=== PATIENT | female | born 1945 | race Caucasian/White ===

== ENCOUNTER → 2019-09-26 11:57 | Outpatient (CLI) | payer MEDICARE, SELFPAY ==
[2019-09-29 16:52] LABS: COVID19 Sendout Not Detected (Not Detected)
== END ==
PROVIDERS: Visit Provider Physician Assistant
DX: R05 Cough (principal)
CPT/HCPCS: 87635

== ENCOUNTER → 2020-01-26 12:42 | Outpatient (CLI) | payer MEDICARE, SELFPAY ==
[2020-01-26 14:13] LABS: Add Manual Diff / Slide Review NO; Basophils Absolute Auto 100 /uL (0-100); Basophils Percent Auto 0.7 % (0-2); Eosinophils Absolute Auto 100 /uL (0-450); Eosinophils Percent Auto 1.6 % (2-4); Hematocrit 41.3 % (36-46); Hemoglobin 13.9 g/dL (12.0-16.0); Lymphocytes Absolute Auto 1900 /uL (1100-4500); Lymphocytes Percent Auto 25.2 % (25-40); Mean Corpuscular HGB Conc 33.6 % (30-36); Mean Corpuscular Hemoglobin 30.7 PG (26-34); Mean Corpuscular Volume 91.4 fL (80-100); Monocytes Absolute Auto 600 /uL (0-900); Monocytes Percent Auto 7.6 % (3-14); Neutrophils Absolute Auto 4900 /uL (1500-7000); Neutrophils Percent Auto 64.9 % (50-75); Platelet Count 279 X10^3/uL (150-400); Red Blood Cell Count 4.52 X10^6/uL (4.0-5.2); Red Cell Distribution Width 13.4 % (11.6-14.8); White Blood Cell Count 7.5 X10^3/uL (4.5-11.0)
[2020-01-26 15:17] LABS: Alanine Aminotransferase 21 IU/L (<35); Albumin 4.1 g/dL (3.5-5.0); Albumin Globulin Ratio 1.3 (1.0-2.8); Alkaline Phosphatase 107 U/L (38-126); Aspartate Aminotransferase 33 IU/L (14-36); BUN Creatinine Ratio 36.3 (6-22); Bilirubin Total 0.7 mg/dL (0.2-1.3); Blood Urea Nitrogen 29 mg/dL (7-17); Calcium 9.4 mg/dL (8.4-10.2); Carbon Dioxide 34 mmol/L (22-32); Chloride 98 mmol/L (98-107); Cholesterol 205 mg/dL (140-199); Estimated Glomerular Filt Rate > 60.0 mL/min (>60); Globulin 3.2 g/dL (1.7-4.1); Glucose 95 mg/dL (80-110); HDL Cholesterol 60 mg/dL (40-60); HEMOLYSIS < 15 (0-50); LDL Cholesterol Calculated 112 mg/dL (<100); Potassium 4.5 mmol/L (3.4-5.1); Sodium 139 mmol/L (137-145); Total Protein 7.3 g/dL (6.3-8.2); Triglycerides 167 mg/dL (35-150)
[2020-01-26 15:29] LABS: Creatinine Urine Random 143.4 mg/dL
[2020-01-26 15:34] LABS: Microalbumi Creatinin Ratio Ur 4.8 ug/mg CR (<30); Microalbumin Urine Random 0.7 mg/dL (0-1.6)
== END ==
PROVIDERS: PCP Family Medicine; Referring Provider Family Medicine; Visit Provider Family Medicine
DX: R42 Dizziness and giddiness (principal); I10 Essential (primary) hypertension
CPT/HCPCS: 36415; 80053; 80061; 82043; 82570; 85025

== ENCOUNTER → 2020-02-20 12:13 | Outpatient (CLI) | payer MEDICARE, SELFPAY ==
--- NOTE | 2020-02-20 12:28 | DI.CT.S_ITS ---
PROCEDURE: CT ABDOMEN PELVIS WO CON INDICATIONS: complex ventral hernia, CT for surgical planning TECHNIQUE: Noncontrast 5 mm thick sections acquired from the diaphragms to the symphysis. 5 mm coronal and sagittal reformats were then performed. For radiation dose reduction, the following was used: automated exposure control, adjustment of mA and/or kV according to patient size. COMPARISON: None. FINDINGS: Image quality: Excellent. ABDOMEN: Lung bases: Left lower lobe 4 mm rounded pulmonary nodule, (3/3). No pleural effusion. Heart size is normal. Solid organs: Liver is normal in size. Gallbladder is unremarkable. Pancreas is normal in contours. Spleen is normal in size. No adrenal nodules. Kidneys are normal in size, without hydronephrosis or nephrolithiasis. Peritoneum and bowel: Findings of a gastric sleeve procedure. Small hiatal hernia. Stomach is not distended. Small duodenal diverticulum. No small bowel obstruction. Herniated transverse colon into the ventral abdominal wall hernia. Normal appendix. Sigmoid colon diverticulosis. Somewhat prominent stool in the rectum. No free fluid or air. Nodes and vessels: No retroperitoneal or mesenteric adenopathy by size criteria. Aorta and inferior vena cava are normal in caliber. Miscellaneous: Upper midline ventral abdominal wall hernia containing a loop of transverse colon. The hernia neck measures 4.7 cm, (2/35). Mild stranding within the hernia sac. No fluid collection. PELVIS: Genitourinary: Bladder is mostly obscured by metallic beam hardening artifact. Small calcification in the region of the left adnexa. Miscellaneous: No inguinal hernias or adenopathy. Bones: Right hip total arthroplasty. No suspicious bony lesions. No vertebral body compression fractures. IMPRESSION: 1. Moderate sized ventral upper abdominal abdominal wall hernia containing a portion of the transverse colon. 2. No bowel obstruction. 3. Findings of prior gastric sleeve procedure. Small hiatal hernia. 4. Diverticulosis. Dictated by: Seth Capone M.D. on 02/20/2020 at 12:45 Approved by: Seth Capone M.D. on 02/20/2020 at 12:57
== END ==
PROVIDERS: PCP Family Medicine; Referring Provider Surgery; Visit Provider Surgery
DX: K43.9 Ventral hernia without obstruction or gangrene (principal); M62.08 Separation of muscle (nontraumatic), other site; R91.1 Solitary pulmonary nodule; K44.9 Diaphragmatic hernia without obstruction or gangrene; K57.10 Diverticulosis of small intestine without perforation or abscess without bleeding; Z98.84 Bariatric surgery status
CPT/HCPCS: 74176

== ENCOUNTER → 2020-03-03 09:01 | Outpatient (CLI) | payer MEDICARE, SELFPAY ==
[2020-03-04 12:37] LABS: COVID19 Sendout Not Detected (Not Detect)
== END ==
PROVIDERS: PCP Family Medicine; Visit Provider Physician Assistant
DX: Z11.59 Encounter for screening for other viral diseases (principal)
CPT/HCPCS: 87635

== ENCOUNTER 2020-03-06 06:31 | Day surgery (SDC) | payer MEDICARE, SELFPAY ==
[2020-03-01 14:15] VITALS: BMI 37.0
[2020-03-06] VITALS (10 sets, daily range): BP systolic 112–146; BP diastolic 40–82; PULSE 70–75; RESP 12–93; TEMP 36.2–37.3; O2SAT 16–98; BMI 37.0
--- NOTE | 2020-03-06 | PATH_ITS ---
[facility] Accession Number: [id number] . 01 Material submitted: . hernia - HERNIA SAC . 01 Clinical history: . SDC . 02 Diagnosis: Hernia Sac, Excision: Benign fibroadipose tissue, consistent with hernia sac. No evidence of neoplasm. MRV 03/11/2020 0955 Local . 02 Electronically signed: . Nathan Esparza MD, PhD, Pathologist NPI- [id number] . 01 Gross description: . Received in formalin, labeled hernia sac, and consists of two pink-purple fibromembranous fragments of soft tissue with attached gaona-yellow adipose tissue measuring 9.0 x 8.0 x 2.5 cm in aggregate. Adult Day Care Worker sections are submitted in cassettes A1-A2. ([id number]) /MRV 03/07/2020 1405 Local . 02 Pathologist provided ICD-10: K43.9 . 02 CPT . 585789 Performed at: 01 [facility] [address], [place], [place] [id number] MD Portillo Perez MD Phone: [phone] Performed at: 02 [facility] [address] [place], [place] [id number] MD Tessie Lezama MD Phone: [phone]
[2020-03-06] MEDS: ACETAMINOPHEN 325 MG TABLET 975 MG PO (07:22)
[2020-03-06] MEDS: LACTATED RINGERS 1,000 ML 42 ML IV ×2 (07:24→10:12)
--- NOTE | 2020-03-06 07:40 | PM.PREOP ---
Pre-operative Note COVID-19 COVID-19 status: Negative Result date/Date tested (Pos, Neg/Pending): 03/03/20 Interval Note History & Physical reviewed/Exam performed by Physician: Yes Changes to H&P: No
[2020-03-06] MEDS: CEFAZOLIN 2 GM/100 ML FROZ.PIGGY IV (07:44)
--- NOTE | 2020-03-06 08:12 | SUR.OPER ---
Supine on padded OR bed, head on pillow, arms secured on padded arm boards at <90 degrees abduction, legs uncrossed, safety belt at thigh, tape over blanket over lower legs.
[2020-03-06] MEDS: BUPIVACAINE 0.25% W/ EPI 30 ML VIAL INJ ×3 (08:18→09:27)
[2020-03-06] MEDS: BUPIVACAINE LIPOSOME 266 MG/20 ML VIAL INJ (09:19)
--- NOTE | 2020-03-06 10:31 | PM.OP.1 ---
Operative Date/Time/Diagnoses Date of procedure: 03/06/20 Time of procedure: 10:31 Pre-op diagnosis: Complex ventral hernia Post-op diagnosis: same (3cm x 3cm defect and 1cm x 1cm defect, combined 5cm x 3cm ) Procedure & Clinicians Procedure: Open ventral hernia repair with retrorectus mesh Same procedure as scheduled: Yes Indications: Complex ventral hernia with incarcerated bowel Surgeon: Cheryle Hernandez Click Yes if Unassisted: Yes Anesthesia Type: General Operative Notes Findings: Complex ventral hernia with incarcerated bowel. 3x3cm defect and 1x1 cm defect, combined 5x3cm hernia. Specimen(s): other (hernia sac) Prosthetic devices, grafts, tissues, transplants, or devices: BARD soft mesh 10cm x 15cm Estimated Blood Loss (mL): 5 Procedure in detail: The patient was brought into the OR, placed supine on the OR table, and appropriate preoperative antibiotics were given. Sequential compression devices were placed on both legs and turned on. General anesthesia was induced and the patient was intubated with an LMA by the anesthesiologist. A greene catheter was placed sterilely in the bladder. The abdomen was prepped and draped in sterile fashion. A surgical time out was conducted. Local anesthetic was infiltrated into the skin and a 10 blade was used to make a vertical upper midline incision overlying the hernia bulge. Dissection was carried down to through the dermis and subcutaneous fat using cautery. A large fascial defects was found in the midline, which was 3cm x 3cm and contained incarcerated bowel. The bowel was reduced as the hernia sac was opened and dissected free. A second defect was found about 1cm inferior to the first defect, this one was about 1cm x 1cm. The fascial bands between the defects were taken down, creating one central hernia defect of 5cm x 3cm. The posterior fascia was opened and dissected free from the rectus muscle bilaterally to the semilunar line. I was then able to closed the midline fascia without tension, using running 0 Vicryl suture. Local anesthetic was infitrated into the fascia and peritoneum using 60mL of 0.25% Marcaine with epi, and 20mL of Exparel. A 10cm x 15cm polypropelene macroporous mesh tailored to fit the space was placed and secured with 3-0 PDS. The rectus muscles and anterior fascia were closed over the mesh using 0 Vicryl in the anterior fascia with good approximation of the rectus muscles. The subcutaneous fat and fascia were approximated with 3-0 Vicryl after injection of additional local anesthetic. A total of 90mL of 0.25% Marcaine was used for the entire procedure. The skin was closed with 4-0 Monocryl and the skin edges were sealed with Dermabond. A pressure dressing was placed over the surgical site and secured with and abdominal binder. The binder was placed and secured on the patient. The patient was awakened from anesthesia and extubated. She tolerated the procedure well. Needle, sponge and instrument counts were correct x 2. The patient was transferred to PACU in stable condition. Complications: none Post-operative Condition: stable Disposition: PACU
--- NOTE | 2020-03-06 11:46 | SUR.PHASEII ---
pt ambulated to bathroom with sba without any difficultly. abd binder in place, pt denies any pain/discomfort at this time. pt significant other at bedside. bed in lowest position and call light given to pt. pt waiting to speak with Dr. Hernandez.
--- NOTE | 2020-03-06 12:29 | SUR.PHASEII ---
Patient ambulatory with no c/o dizziness or nausea. Dr Hernandez observing ambulation. Patient rates pain as a mild discomfort, 3/10. Denies any nausea. at bedside and supportive.
--- NOTE | 2020-03-06 12:41 | SUR.PHASEII ---
Discharged patient home in stable condition with all belongings. All discharge instructions reviewed with patient and significant other. No questions at this time. RX sent to [facility]. V/U.
== END 2020-03-06 12:41 | disposition home or self-care (01) ==
PROVIDERS: PCP Family Medicine; Referring Provider Family Medicine; Visit Provider Surgery
PROC: (CPT 49561; principal; 2020-03-06 07:45)
DX: K43.6 Other and unspecified ventral hernia with obstruction, without gangrene (principal); M62.08 Separation of muscle (nontraumatic), other site; Z98.890 Other specified postprocedural states; E66.9 Obesity, unspecified; Z68.37 Body mass index [BMI] 37.0-37.9, adult; I10 Essential (primary) hypertension
CPT/HCPCS: 49561; 49568; C1781; C9290; J0330; J0690; J1100; J2405; J2704; J3010

== ENCOUNTER → 2020-07-02 15:14 | Outpatient (CLI) | payer MEDICARE, SELFPAY ==
--- NOTE | 2020-07-02 15:16 | DI.RAD.S_ITS ---
PROCEDURE: XR HIP W PEL IF DONE RT 2V INDICATIONS: right hip pain TECHNIQUE: AP pelvis and lateral view of the right hip acquired. COMPARISON: None. FINDINGS: Bones: Patient is status post right hip arthroplasty, with hardware components in expected positions. The hip joint appears congruent. No acute fracture. Chronic appearing moderately displaced greater trochanteric fracture. Soft tissues: Overlying postoperative changes are noted. No suspicious soft tissue densities. IMPRESSION: Expected appearance of right hip arthroplasty. Chronic appearing moderately displaced right greater trochanteric fracture. This could be further assessed with CT, if clinically indicated. Dictated by: Kayleen Romo M.D. on 07/02/2020 at 16:47 Approved by: Kayleen Romo M.D. on 07/02/2020 at 16:48
== END ==
PROVIDERS: PCP Family Medicine; Referring Provider Family Medicine; Visit Provider Family Medicine
DX: M25.551 Pain in right hip (principal); S72.111A Displaced fracture of greater trochanter of right femur, initial encounter for closed fracture; Z96.641 Presence of right artificial hip joint
CPT/HCPCS: 73502

== ENCOUNTER → 2020-08-09 14:11 | Outpatient (CLI) | payer MEDICARE, SELFPAY ==
[2020-08-09] MEDS: COVID-19 VACC #1, MRNA(MOD) 100 MCG/0.5 ML VIAL IM (14:19)
== END ==
PROVIDERS: PCP Family Medicine; Visit Provider Internal Medicine
DX: Z23 Encounter for immunization (principal)
CPT/HCPCS: 0011A; 91301

== ENCOUNTER → 2020-09-06 14:20 | Outpatient (CLI) | payer MEDICARE, SELFPAY ==
[2020-09-06] MEDS: COVID-19 VACC #2, MRNA(MOD) 100 MCG/0.5 ML VIAL IM (14:25)
== END ==
PROVIDERS: PCP Family Medicine; Visit Provider Internal Medicine
DX: Z23 Encounter for immunization (principal)
CPT/HCPCS: 0012A; 91301

== ENCOUNTER → 2020-09-13 16:09 | Outpatient (CLI) | payer MEDICARE, SELFPAY ==
--- NOTE | 2020-09-13 16:13 | DI.US.S_ITS ---
PROCEDURE: US ABDOMEN COMPLETE INDICATIONS: NAUSEA TECHNIQUE: Real-time scanning was performed of the abdominal and retroperitoneal organs, with image documentation. COMPARISON: [facility], CT, CT ABDOMEN PELVIS WO CON, 02/20/2020, 12:21. FINDINGS: Liver: Liver is normal in size and homogeneous in echotexture. Gallbladder: No findings of gallstones or sludge are seen. The gallbladder wall is not thickened, measuring 3 mm or less. No specific pericholecystic fluid is seen. The sonographic Weathers sign is negative. Biliary ducts: Intrahepatic bile ducts are non-dilated. Extrahepatic bile duct caliber measures 7 mm. Normal is 6-7 mm or less in diameter, or 10 mm or less post-cholecystectomy. Pancreas: Visualized portions of the pancreas are sonographically normal. Spleen: Spleen is normal in size and homogeneous in echotexture. Kidneys: Kidneys are normal in size and echotexture. Right kidney measures 10.1 cm long; left kidney measures 10.3 cm long. No hydronephrosis or nephrolithiasis. No solid masses. Aorta: Visualized aorta is normal in caliber at less than 3 cm. Iliacs: Not seen. IVC: Intrahepatic inferior vena cava is patent. Miscellaneous: No free abdominal fluid. This study is limited by body habitus. IMPRESSION: No imaging explanation is found for this patient's presenting symptoms. The gallbladder demonstrates a normal sonographic appearance. No biliary dilatation is seen. Dictated by: Cory Mccabe M.D. on 09/13/2020 at 16:12 Approved by: Cory Mccabe M.D. on 09/13/2020 at 16:13
== END ==
PROVIDERS: PCP Family Medicine; Referring Provider Family Medicine; Visit Provider Family Medicine
DX: R11.0 Nausea (principal)
CPT/HCPCS: 76700

== ENCOUNTER → 2020-09-25 12:42 | Outpatient (CLI) | payer MEDICARE, SELFPAY ==
[2020-09-25 13:57] LABS: Add Manual Diff / Slide Review NO; Basophils Absolute Auto 100 /uL (0-100); Basophils Percent Auto 0.8 % (0-2); Eosinophils Absolute Auto 0 /uL (0-450); Eosinophils Percent Auto 0.4 % (2-4); Hematocrit 39.7 % (36-46); Hemoglobin 13.8 g/dL (12.0-16.0); Lymphocytes Absolute Auto 900 /uL (1100-4500); Lymphocytes Percent Auto 14.1 % (25-40); Mean Corpuscular HGB Conc 34.7 % (30-36); Mean Corpuscular Hemoglobin 30.6 PG (26-34); Mean Corpuscular Volume 88.1 fL (80-100); Monocytes Absolute Auto 500 /uL (0-900); Monocytes Percent Auto 8.4 % (3-14); Neutrophils Absolute Auto 4900 /uL (1500-7000); Neutrophils Percent Auto 76.3 % (50-75); Platelet Count 398 X10^3/uL (150-400); Red Blood Cell Count 4.51 X10^6/uL (4.0-5.2); Red Cell Distribution Width 12.8 % (11.6-14.8); White Blood Cell Count 6.4 X10^3/uL (4.5-11.0)
[2020-09-25 15:23] LABS: Alanine Aminotransferase 15 IU/L (<35); Albumin 4.3 g/dL (3.5-5.0); Albumin Globulin Ratio 1.4 (1.0-2.8); Alkaline Phosphatase 105 U/L (38-126); Aspartate Aminotransferase 29 IU/L (14-36); BUN Creatinine Ratio 15.1 (6-22); Bilirubin Total 0.7 mg/dL (0.2-1.3); Blood Urea Nitrogen 11 mg/dL (7-17); Calcium 9.5 mg/dL (8.4-10.2); Carbon Dioxide 27 mmol/L (22-32); Chloride 88 mmol/L (98-107); Estimated Glomerular Filt Rate > 60.0 mL/min (>60); Glucose 115 mg/dL (80-110); HEMOLYSIS < 15 (0-50); Lipase 56 U/L (23-300); Potassium 3.7 mmol/L (3.4-5.1); Sodium 123 mmol/L (137-145); Total Protein 7.3 g/dL (6.3-8.2)
== END ==
PROVIDERS: PCP Family Medicine; Referring Provider Family Medicine; Visit Provider Family Medicine
DX: R11.0 Nausea (principal)
CPT/HCPCS: 36415; 80053; 83690; 85025

== ENCOUNTER 2020-09-25 16:50 | Inpatient (IN) | payer MEDICARE, SELFPAY ==
--- NOTE | 2020-09-25 | DI.CT.S_ITS ---
PROCEDURE: CT ABDOMEN PELVIS WO/W CON INDICATIONS: persistent nausea/vomiting TECHNIQUE: 5 mm thick sections acquired from the diaphragms to the symphysis. After the administration of intravenous contrast, 5 mm thick sections acquired from the diaphragms to the symphysis. 5 mm thick coronal and sagittal reformats were acquired. For radiation dose reduction, the following was used: automated exposure control, adjustment of mA and/or kV according to patient size. COMPARISON: [facility], CT, CT ABDOMEN PELVIS WO CON, 02/20/2020, 12:21. FINDINGS: Image quality: There is metallic streak artifact from patient's right hip prosthesis. ABDOMEN: Lung bases: There is mild dependent atelectasis and scarring in the lung bases. Heart size is normal. Solid organs: Evaluation of the liver demonstrates no focal hepatic lesions. The gallbladder appears within normal limits without calcified gallstones. Biliary system is non-dilated. Pancreas enhances normally. No peripancreatic fat stranding or fluid collections. No pancreatic duct dilatation. The spleen is normal in size. There is mild thickening of the left adrenal gland redemonstrated without a discrete nodule. Kidneys demonstrate no hydronephrosis. Bowel and peritoneum: Postsurgical changes are redemonstrated compatible with prior gastric sleeve procedure. Stomach, small and large bowel loops are normal in caliber and wall thickness. The appendix is normal in appearance. There is colonic diverticulosis without acute diverticulitis. No free fluid or air. Nodes and vessels: No retroperitoneal or mesenteric adenopathy by size criteria. Aorta and inferior vena are normal in caliber. Miscellaneous: There are postsurgical changes within the ventral abdominal wall consistent with prior hernia repair. No recurrent ventral hernias. PELVIS: Genitourinary: Bladder wall thickness is normal. Miscellaneous: No inguinal hernias or adenopathy. Bones: A right hip prosthesis is present with associated metallic streak artifact. There is periarticular soft tissue edema. No suspicious bony lesions. No vertebral body compression fractures. IMPRESSION: 1. No definite acute intra-abdominal abnormality. Specifically, no evidence of bowel obstruction. 2. Colonic diverticulosis without acute diverticulitis. 3. Postsurgical changes consistent with prior ventral hernia repair. No recurrent hernia identified. Dictated by: Portillo Posada M.D. on 09/26/2020 at 10:39 Approved by: Portillo Posada M.D. on 09/26/2020 at 10:45
[2020-09-25 16:50] VITALS: BP 132/73; PULSE 69; RESP 15; TEMP 36.6; O2SAT 96
--- NOTE | 2020-09-25 17:03 | PM.HP.1 ---
History of Present Illness History of Present Illness Date Patient Seen: 09/25/20 Time Patient Seen: 17:03 Chief complaint: hyponatremia Narrative: Pt is a 75 year old woman with hypertension, depression, fibromyalgia, and IBS who presents after being called in from home due to significant hyponatremia found on blood work today. The patient reports that her appetite has been significantly decreased due to severe nausea with intermittent vomiting for the past approximately 4 weeks. She has been vomiting around 1 to 2 times a day. Today she states that she vomits at most a half cup to a cup of fluid a day. She is eating very little. Her partner reports that she has likely been consuming only around 1-1.5 pints of water a day. She denies any abdominal pain. She denies any diarrhea, constipation, blood in her stool, melena, or hematochezia. The patient has been feeling generally weak and has been having more balance issues as a result. This has been ongoing over this same time period. Patient's mood has also been down recently, feeling more depressed and anxious than usual. She is currently working on this on an outpatient basis. The patient denies any recent chest pain, shortness of breath, palpitations. She denies any recent lower extremity edema. Her hydrochlorothiazide was recently increased from 12.5-25 mg. She previously had been on 25 mg for a relatively long period of time. Patient History Medical History (Updated 04/04/20 @ 15:05 by Nataliia Washington MD) Allergies (~1979) Depression Essential hypertension (~2001) Fibromyalgia (~2009) Hyperlipidemia Irritable bowel syndrome (~2017) Osteoarthritis (~1989) Restless legs Ventral hernia Surgical History (Updated 07/06/20 @ 10:37 by Nataliia Washington MD) History of sleeve gastrectomy Personal history of gastric banding S/P hernia repair S/P hip replacement Family & Social History Social History: household members significant other Tobacco & Substance use: Smoking Status Former smoker alcohol intake current alcohol intake frequency 0-2 drinks per day Substance Use Type does not use Meds Home Medications and Allergies Home Medications Medication Instructions Recorded Confirmed Type docusate sodium 100 mg PO BID #20 cap 03/06/20 09/25/20 Rx fluoxetine 40 mg capsule 80 mg PO DAILY #180 cap 07/05/20 09/25/20 Rx losartan 100 mg tablet 100 mg PO DAILY #90 tab 07/05/20 09/25/20 Rx oxycodone 5 mg tablet 5 mg PO Q6H PRN #20 tab 07/05/20 09/25/20 Rx pravastatin 40 mg tablet 40 mg PO BEDTIME #90 tab 07/05/20 09/25/20 Rx ropinirole 2 mg tablet 2 mg PO DAILY #90 tab 07/05/20 09/25/20 Rx estradiol 0.025 mg/24 hr 1 patch TRANSDERMAL 2XW #24 ea 07/12/20 09/25/20 Rx semiweekly transdermal patch hydrochlorothiazide 25 mg tablet 12.5 mg PO DAILY #30 tab 07/29/20 09/25/20 Rx escitalopram oxalate 20 mg tablet 20 mg PO DAILY #30 tab 09/16/20 09/25/20 Rx hydroxyzine HCl 25 mg tablet 25 mg PO TID PRN #30 tab 09/25/20 09/25/20 Rx ondansetron 4 mg disintegrating 4 mg PO Q8H PRN #30 tab 09/25/20 09/25/20 Rx tablet Allergies Allergy/AdvReac Type Severity Reaction Status Date / Time acetaminophen [From Lortab] Allergy Intermediate Anxiety Verified 07/02/20 14:22 hydrocodone [From Lortab] Allergy Intermediate Anxiety Verified 07/02/20 14:22 strawberry Allergy Intermediate Rash Verified 07/02/20 14:22 Review of Systems Constitutional Constitutional: Denies chills, Denies difficulty sleeping, Reports fatigue, Denies fever(s), Reports frequent falls, Reports lethargy, Reports poor appetite and Reports weight loss Eyes Eyes: Denies blurry vision ENT Ears, Nose, Mouth, and Throat: No dysphagia, No hearing loss and No nasal congestion Cardiovascular Cardiovascular: Denies chest pain, Denies rapid heart rate, Denies lightheadedness and Denies dyspnea Respiratory Respiratory: Denies cough and Denies dyspnea Gastrointestinal Gastrointestinal: Denies abdominal pain, Denies melena, Denies hematochezia, Denies constipation, Denies dysphagia, Denies loose stools, Reports nausea, Reports vomiting and Denies hematemesis Genitourinary Genitourinary: Denies hematuria and Denies urinary urgency Neurologic Neurologic: Reports frequent falls Endocrine Endocrine: Reports fatigue Exam Narrative Exam Narrative: GEN - alert, cooperative and no distress HEENT - normocephalic and atraumatic, moist mucus membranes NECK - FROM, no adenopathy, thyroid is not enlarged, symmetrical and smooth, no JVD, bruise over right eye pt states is from recent fall HEART - RRR, S1, S2 normal, no S3 or S4, no murmurs LUNGS - symmetric chest rise, no accessory muscles, clear to auscultation bilaterally ABD - nondistended, normal bowel sounds, soft, nontender and no hepatomegaly, splenomegaly or masses EXT - no cyanosis, clubbing or edema SKIN - no rashes or suspicious lesions NEURO - grossly intact Assessment & Plan Assessment & Plan narrative: Pt is a 75 year old woman with hypertension, depression, fibromyalgia, and IBS who presents after being called in from home due to significant hyponatremia found on blood work today. Most likely acute change due to hypovolemia with decreased PO intake and vomiting, potentially with HCTZ exacerbating further. 1) Hyponatremia: Most likely acute, with sodium normal range in April. Relative rapid correction should be okay. - 1L NS bolus now - Repeat BMP afterwards, if not improving then plan on 50mL 3% saline bolus - Hold HCTZ for now - Run NS at 100cc/hr after bolus, assuming sodium improving - Will trend sodium level closely - Urine osm and sodium - EKG 2) Nausea and vomiting: Unclear etiology. Recently with negative abdominal ultrasound. - Abdominal CT - Zofran PRN for symptom relief 3) Depression and Anxiety: - Continue Lexapro, Hydroxyzine PRN 4) HTN: - Hold HCTZ as above - Continue home Losartan - Monitor BPs, may need to add alternative agent to HCTZ 5) Hyperlipidemia: - Continue statin 6) Restless legs: - Continue Ropinirole FEN: General diet. Pt not drinking much fluids anyway. If appetite improving, may need to fluid restrict. DVT PPx: Lovenox Code: Full Dispo: Pending improvement in sodium and ability to tolerate PO fluids. Potentially home tomorrow, although anticipate 2 midnights.
[2020-09-25] MEDS: SODIUM CHLORIDE 0.9% 1,000 ML 1000 ML IV ×2 (17:14→20:51)
[2020-09-25 17:17] VITALS: BMI 33.0
[2020-09-25 17:56] LABS: COVID19 - ADMIT (NP swab/PCR) Negative (Negative)
[2020-09-25] MEDS: SODIUM CHLORIDE 0.9% 1,000 ML 100 ML IV (18:35)
[2020-09-25 18:47] LABS: Appearance Urine UA SL CLOUDY; Bilirubin Urine UA NEGATIVE (NEGATIVE); Color Urine UA YELLOW; Glucose Urine UA NEGATIVE (Negative); Ketones Urine UA NEGATIVE (NEGATIVE); Leukocyte Esterase Urine UA 2+ (NEGATIVE); Nitrite Urine UA NEGATIVE (Negative); Occult Blood Urine UA TRACE-LYSED (Negative); Protein Urine UA NEGATIVE (Negative); Urobilinogen Urine UA 0.2 E.U./dL (0.2)
--- NOTE | 2020-09-25 18:58 | PC.NURSE ---
Addendum entered by Raquel Tai R.N. 09/25/20 21:41: Patient reported burning with IV infusion of potassium, slowed infusion down to 75ml/hr and running concurrent with NS infusion, pain has resolved. Addendum entered by Raquel Tai R.N. 09/25/20 21:26: During initial potassium infusion patient started having burning pain with infusion. Started second IV site, changed lines and started infusion in new IV site. Original IV patent and after line change is no longer painful. Patient reports pain in IV site has resolved. Original Note: Admission note: Patient was direct admit, arrived via wheelchair, transferred self to inpatient hospital bed. AxOx3, can make needs known. Reports 5 recent falls and episodes of syncope that has resulted in multiple abrasions and bruising to right eye and both legs. Recent onset of weakness, does not use FWW at baseline but was advised by Dr Washington to obtain one for safety, will be using assistive device while inpatient. C/o nausea with eating and attempted to eat dinner tray but felt nauseated w/o emesis. Infused 1L of NS by bolus prior to taking patient down for CT by this RN and returned. Denies pain, VSS, saturating WNL on RA. High fall risk d/t multiple falls and weakness. Fall risk and call light safety given, call light in reach, bed alarm on and functioning.
[2020-09-25 18:59] LABS: Amorphous Sediment Urine 1+; RBC Urine 0-1/HPF (0-5/HPF); Squamous Epithelial Cell Urine 1-5 /HPF (0-5/HPF); WBC Urine 5-10/HPF (0-5/HPF)
[2020-09-25 19:00] LABS: Bacteria Urine Few (2-10); Culture Indicated Urine Specimen Cultured; Mucus Urine 1+ (Negative)
[2020-09-25 19:28] LABS: Sodium Urine Random 29 mmol/L (30-90)
[2020-09-25 19:37] VITALS: BP 153/80; PULSE 68; RESP 18; TEMP 36.3; O2SAT 94
[2020-09-25 19:56] LABS: BUN Creatinine Ratio 17.3 (6-22); Blood Urea Nitrogen 14 mg/dL (7-17); Calcium 8.5 mg/dL (8.4-10.2); Carbon Dioxide 27 mmol/L (22-32); Chloride 92 mmol/L (98-107); Estimated Glomerular Filt Rate > 60.0 mL/min (>60); Glucose 124 mg/dL (80-110); HEMOLYSIS < 15 (0-50); Potassium 3.2 mmol/L (3.4-5.1); Sodium 125 mmol/L (137-145)
[2020-09-25] MEDS: POTASSIUM CHLORIDE IN WATER 10 MEQ/100 ML PIGGYBACK 100 MEQ IV (20:50)
[2020-09-25] MEDS: ROPINIROLE 1 MG TABLET 2 MG PO (21:10)
[2020-09-25] MEDS: PRAVASTATIN 20 MG TABLET 40 MG PO (21:10)
[2020-09-25] MEDS: ACETAMINOPHEN 325 MG TABLET 650 MG PO (21:14)
[2020-09-25] MEDS: POTASSIUM CHLORIDE IN WATER 10 MEQ/100 ML PIGGYBACK 75 MEQ IV (22:11)
[2020-09-25 23:51] VITALS: BP 166/81; PULSE 64; RESP 16; TEMP 36.1; O2SAT 98
[2020-09-26 03:25] VITALS: BP 133/67; PULSE 70; RESP 16; TEMP 36; O2SAT 97
[2020-09-26] MEDS: SODIUM CHLORIDE 0.9% 1,000 ML 125 ML IV ×3 (04:10→22:02)
[2020-09-26] MEDS: ACETAMINOPHEN 325 MG TABLET 650 MG PO ×2 (04:15→20:15)
[2020-09-26 07:12] VITALS: BP 126/60; PULSE 66; RESP 16; TEMP 36.4; O2SAT 96
[2020-09-26 07:32] LABS: BUN Creatinine Ratio 14.8 (6-22); Blood Urea Nitrogen 8 mg/dL (7-17); Calcium 8.4 mg/dL (8.4-10.2); Carbon Dioxide 21 mmol/L (22-32); Chloride 101 mmol/L (98-107); Estimated Glomerular Filt Rate > 60.0 mL/min (>60); Glucose 131 mg/dL (80-110); HEMOLYSIS < 15 (0-50); Potassium 3.6 mmol/L (3.4-5.1); Sodium 129 mmol/L (137-145)
[2020-09-26 07:47] LABS: Hemoglobin A1C% w Est Avg Glu 4.9 % (4.0-6.0)
[2020-09-26] MEDS: ESCITALOPRAM 10 MG TABLET 20 MG PO (09:30)
[2020-09-26] MEDS: LOSARTAN 50 MG TABLET 100 MG PO (09:30)
--- NOTE | 2020-09-26 10:39 | P.PN_ITS ---
Subjective Subjective Date Patient Seen: 09/26/20 Time Patient Seen: 09:50 Interval history: The patient reports feeling significantly improved this morning. She states that her balance is somewhat better. She feels that her energy level is increased. She has been able to eat small amounts of food, and states that her nausea has not been nearly as bad. She has not needed as the ondansetron at all. She would like to go home later today. Exam Vital Signs (past 8 hours): - 09/26/20 03:25 09/26/20 07:12 Temperature 96.8 F L 97.6 F Pulse Rate 70 66 Respiratory Rate 16 16 Blood Pressure 133/67 126/60 Pulse Oximetry 97 96 Oxygen Delivery Method Room Air Oxygen Flow Rate 0 Narrative Exam Narrative: General: No acute distress, sitting comfortably in chair, appears well CV: Regular rate and rhythm, no murmurs Respiratory: Clear to auscultation bilaterally Abdomen: Soft, nontender, nondistended, normoactive bowel sounds Extremities: no edema Objective Labs Result Diagrams: 09/26/20 06:54 09/26/20 06:54 Labs: Laboratory Results - last 24 hr 09/25/20 09/25/20 09/25/20 16:55 18:39 18:39 Sodium Potassium Chloride Carbon Dioxide BUN Creatinine Estimated GFR BUN/Creatinine Ratio Glucose Hemoglobin A1c Calcium Urine Color Yellow Urine Appearance Sl cloudy Urine pH 7.0 Ur Specific [place] 1.020 Urine Protein Negative Urine Glucose (UA) Negative Urine Ketones Negative Urine Occult Blood Trace-lysed Urine Nitrate Negative Urine Bilirubin Negative Urine Urobilinogen 0.2 Ur Leukocyte Esterase 2+ H Urine RBC 0-1/hpf Urine WBC 5-10/hpf H Ur Squamous Epith Cells 1-5 /hpf Amorphous Sediment 1+ Urine Bacteria Few (2-10) H Urine Mucus 1+ H Ur Culture Indicated? Specimen cultured Urine Osmolality Cancelled Ur Random Sodium SARS-CoV-2 (PCR) Negative 09/25/20 09/25/20 09/26/20 18:45 19:30 06:54 Sodium 125 L 129 L Potassium 3.2 L 3.6 Chloride 92 L 101 Carbon Dioxide 27 21 L BUN 14 8 Creatinine 0.81 0.54 Estimated GFR > 60.0 > 60.0 BUN/Creatinine Ratio 17.3 14.8 Glucose 124 H 131 H Hemoglobin A1c Calcium 8.5 8.4 Urine Color Urine Appearance Urine pH Ur Specific [place] Urine Protein Urine Glucose (UA) Urine Ketones Urine Occult Blood Urine Nitrate Urine Bilirubin Urine Urobilinogen Ur Leukocyte Esterase Urine RBC Urine WBC Ur Squamous Epith Cells Amorphous Sediment Urine Bacteria Urine Mucus Ur Culture Indicated? Urine Osmolality Ur Random Sodium 29 L SARS-CoV-2 (PCR) 09/26/20 06:54 Sodium Potassium Chloride Carbon Dioxide BUN Creatinine Estimated GFR BUN/Creatinine Ratio Glucose Hemoglobin A1c 4.9 Calcium Urine Color Urine Appearance Urine pH Ur Specific [place] Urine Protein Urine Glucose (UA) Urine Ketones Urine Occult Blood Urine Nitrate Urine Bilirubin Urine Urobilinogen Ur Leukocyte Esterase Urine RBC Urine WBC Ur Squamous Epith Cells Amorphous Sediment Urine Bacteria Urine Mucus Ur Culture Indicated? Urine Osmolality Ur Random Sodium SARS-CoV-2 (PCR) [facility] Medical History (Updated 04/04/20 @ 15:05 by Nataliia Washington MD) Allergies (~1979) Depression Essential hypertension (~2001) Fibromyalgia (~2009) Hyperlipidemia Irritable bowel syndrome (~2017) Osteoarthritis (~1989) Restless legs Ventral hernia Surgical History (Updated 07/06/20 @ 10:37 by Nataliia Washington MD) History of sleeve gastrectomy Personal history of gastric banding S/P hernia repair S/P hip replacement Social History marital status: unknown household members: significant other Smoking Status: Former smoker alcohol intake: current substance use type: does not use Assessment & Plan Assessment & Plan narrative: Pt is a 75 year old woman with hypertension, depre ssion, fibromyalgia, and IBS who presents after being called in from home due to significant hyponatremia found on blood work yesterday. Most likely acute change due to hypovolemia with decreased PO intake and vomiting, potentially with HCTZ exacerbating further. 1) Hyponatremia: Most likely acute, with sodium normal range in April. Relative rapid correction should be okay. Sodium 129 up from 123 at admission. S/P 2x 1L bolus and mIVF at 125/hr overnight. Full boluses instead of hyper tonic saline due to decreased PO intake and likely mild dehydration contributing. - Repeat 1L NS bolus now - Repeat BMP afterwards - Continue to hold HCTZ - Continue mIVF - Will trend sodium level closely - Urine osm pending 2) Nausea and vomiting: Unclear etiology. Recently with negative abdominal ultrasound. Improving. - Abdominal CT read still pending - Zofran PRN for symptom relief 3) Depression and Anxiety: - Continue Lexapro, Hydroxyzine PRN 4) HTN: - Hold HCTZ as above - Continue home Losartan - Monitor BPs, may need to add alternative agent to HCTZ 5) Hyperlipidemia: - Continue statin 6) Restless legs: - Continue Ropinirole FEN: General diet. Pt not drinking much fluids anyway. If appetite improving, may need to fluid restrict. DVT PPx: SCDs and ambulation Code: Full Dispo: Pending improvement in sodium. Potentially home later today pending repeat blood work, but more likely tomorrow morning. Quality VTE Deep Vein Thrombosis/Pulmonary Embolism Present on Admission: No
[2020-09-26] MEDS: SODIUM CHLORIDE 0.9% 1,000 ML 1000 ML IV (10:41)
--- NOTE | 2020-09-26 12:00 | OT.IP.EVAL ---
Past Medical History (Last Updated 04/04/20 @ 15:01 by Nataliia Washington MD) Allergies (~1979) Depression Essential hypertension (~2001) Fibromyalgia (~2009) Hyperlipidemia Irritable bowel syndrome (~2017) Osteoarthritis (~1989) Restless legs Ventral hernia Surgical History (Last Updated 07/06/20 @ 10:37 by Nataliia Washington MD) History of sleeve gastrectomy Personal history of gastric banding S/P hernia repair S/P hip replacement Occupational Therapy Inpatient Evaluation/Re-Eval M1 PT/OT-IP Prior Functional Status Start: 09/26/20 13:04 Freq: NEEDED Status: Active Protocol: Document 09/26/20 13:58 [facility] (Rec: 09/26/20 14:29 [facility] [id number]) Medical Review Prior Functional Status Medical History Reviewed Yes Communication Independent Mobility and Gait Pt states use of walking stick if going outside. Pt's states she had had 5 falls in the past 4-6 months and has gotten weaker in the past 6-8 months overall. Pt's states pt does minimal walking at home. Activities of Daily Living and IADL's Pt's states assist her with bathing otherwise able to do her ADl needs. Pt and states both pay the bills and assist each other with medications as they both state they have trouble with their memory at times. Social History Household Members significant other Living Arrangements RV Number of Floors (Floors) One Floor Number of Stairs To Enter/Railing? 3 steps and able to alternate between left , right , and left hand to hold handrails to help get into the RV. Home Environment High Toilet,Walk in Shower Home Equipment Hand Held Shower Additional Social History Comment Pt has a built in seat which she uses at home and has walking stick that she uses to walk outside. M2 OT-IP Current Condition Start: 09/26/20 13:31 Freq: Status: Active Protocol: Document 09/26/20 13:58 [facility] (Rec: 09/26/20 14:29 [facility] [id number]) Occupational Therapy Current Condition Current Condition Evaluation Date 09/26/20 Treatment Diagnosis Hyponatremia, weakness Diagnosis Onset Date 09/25/20 M3 OT- IP Subjective and Pain Start: 09/26/20 13:31 Freq: Status: Active Protocol: Document 09/26/20 13:58 [facility] (Rec: 09/26/20 14:29 [facility] [id number]) OT- Subjective Occupational Therapy Visit Type Type Initial Evaluation Visit Start Time 11:04 Visit Stop Time 12:00 Total Visit Minutes 56 Occupational Therapy Visit Comments Patient Comments Pt's present for OT eval. Pt's states he has had a brain injury in the past, moves slowly , and admits to being forgetful at times. Pt's is very eager to assist the pt during OTeval. Patient/Caregiver Goals TO go home. OT Pain Assessment Pain When Pain Assessed At Rest Pain Present Pain Present Pain Reported M4 OT- IP ADL's Start: 09/26/20 13:31 Freq: Status: Active Protocol: Document 09/26/20 13:58 [facility] (Rec: 09/26/20 14:29 [facility] [id number]) OT [id number] Comments OT Self-Feeding Comments NOt at meal time. OT ADL-Grooming General Evaluation Areas Needing Assistance Retrieving/Set-up of Grooming Items OT ADL-Oral Care General Eval Areas of Assistance Retrieving/Set-Up of Items OT ADL-Dressing General Eval Lower Body Dressing Ability Standby Assistance Comments OT Dressing Comments Pt able to sabrina/doff her socks while sitting on the edge of the bed. OT ADL-Toileting General Evaluation Toileting Ability Standby Assistance Comments OT Toileting Comments vc for safety OT ADL-Bathing Comments OT Bathing Comments Not performed. M5 OT- IP IADL's Start: 09/26/20 13:31 Freq: Status: Active Protocol: Document 09/26/20 13:58 [facility] (Rec: 09/26/20 14:29 [facility] [id number]) OT-Instrumental Activities of Daily Living Home Safety Awareness Awareness of Need for Assistance at Home Decreased Awareness Home Safety Comments Pt a bit forgetful, and would benefit from her to remind her of safety needs to slow down, take her time, and rest when needed. Medication Management Medication Management Caregiver Provides Supervision Money Management Money Management Caregiver Provides Supervision Fishing Guide Fishing Guide Caregiver Provides Assist Driving Driving Concerns Identified Regarding Safety M6 OT- IP Functional Cognition Start: 09/26/20 13:31 Freq: Status: Active Protocol: Document 09/26/20 13:58 [facility] (Rec: 09/26/20 14:29 [facility] [id number]) Cognitive Factors Limiting Selfcare Function Cognitive Ability Level of Alertness Alert Patient Orientation Name,Place,Situation Attention Span Ability Capable of Focused Attention, Capable of Sustained Attention Ability to Follow Commands Able to Follow One Step Commands Memory Description Short Term Impaired Safety Awareness Underestimates Need for Assistance Problem Solving Ability Needs Assist to Identify Solutions Cognitive Tests SLUMS Pt scored 17/30 which implies cognitive deficits, however her score may still if influenced by her low sodium numbers. Pt feels that she is not at her baseline yet for thinking matters. Pt able to recall 4/5 objects, not able to states 3 or 4 digits numbers backwards, unable to write in numbers on the clock in correct portions or able to draw in the hands of the clock after time given, able to answer 1/4 questions after paragraph read. To continue to assess her cognitive needs as her sodium level come up. Cognitive Comments Cognitive Assessment Comments Pt needing cues for safety to slow down, take her time, to keep the FWW in front of her during use. OT- Vision and Hearing OT- Hearing Assessment OT- Hearing Assessment Use of Hearing Aids OT- Vision Assessment Visual Acuity Glasses All The Time Vision Assessment Comments Pt states does not have her hearing aids in. M7 OT- IP Mobility and Balance Start: 09/26/20 13:31 Freq: Status: Active Protocol: Document 09/26/20 13:58 [facility] (Rec: 09/26/20 14:29 [facility] [id number]) OT- Bed Mobility Assessment Rolling Level of Assistance Standby Assistance Supine to Sit Supine to Sit Assist Standby Assistance OT-Transfer Assessment Sit to and From Stand Sit to and from Stand Contact Guard Assistance Transfers Transfer Ability Contact Guard Assistance Technique Transfer Destination Bed Transfer Technique Stand Step Pivot Devices Transfer Assistive Devices Gait Belt,Front Wheeled Walker Comments Mobility Comments Pt requesting to have the gait belt placed high up. SBA for bed mobility needs, CGA to stand with FWW, vc to push up from the bed. At time pt a little unsteady as moving fast and needing CGA or balance. OT- Balance Assessment Sitting Balance and Reactions Static Sitting Balance Ability Normal Dynamic Sitting Balance Ability Good Standing Balance and Reactions Static Standing Balance Ability Good M8 OT- IP Objective Assessments Start: 09/26/20 13:31 Freq: Status: Active Protocol: Document 09/26/20 13:58 [facility] (Rec: 09/26/20 14:29 [facility] [id number]) OT Gross Range of Motion Upper Extremity Range of Motion Assessment Within Functional Limits OT Strength Comments Strength Comments BUE 4-/5 to 4/5 OT-Muscle Tone Assessment Muscle Tone WNL Yes M9 OT- IP Assessment and Plan Start: 09/26/20 13:31 Freq: Status: Active Protocol: Document 09/26/20 13:58 [facility] (Rec: 09/26/20 14:29 [facility] [id number]) OT Summary Assessment and Plan Potential Rehabilitation Potential Good Analytic Complexity at Evaluation Low Summary OT Impairments Balance,Functional Mobility, Dressing,Toileting,Bathing, Toilet Transfers,Shower Transfers,Activity Tolerance Progress Towards Goals Slow Progress due to Medical Issues,Slow Progress due to Activity Tolerance Assessment Summary Pt low complexity and main barriers are steps, needing cues for safety, decreased memory which may be influenced by her low sodium numbers, and now needing at least supervision for all needs. Pt has a supportive to assist her with all her needs at home. Pt's states to get her a 4ww, however suggested to wait until PT able to work with the pt on FWW versus 4WW. Pt to go home when medically stable and recommend outpt for dynamic balance needs. Goals Self-Feeding Goal Independent Grooming Goal Independent Dressing Goal Independent Toileting Goal Independent Bathing Goal Moderate Assistance Toilet Transfer Goal Independent,Moderate Assistance Shower Transfer Goal Standby Assistance Patient/Caregiver Education Goal Caregiver Independent Assisting Patient Days to Meet Goals 2 Frequency of Treatment Frequency Of Treatment Once a Day Treatment Plan OT Treatment Plan ADL Training,Functional Cognition Training,Functional Mobility,Patient/Family Education,Discharge Planning Other Treatment Recommendations and Next GO over inforamtion for memory Treatment Focus , fall prevention, and shower. Discharge Recommendations OT Discharge Recommendations Home with Assistance Home Equipment Needs 4ww Transportation Needs at Discharge Private Vehicle
[2020-09-26 13:02] LABS: BUN Creatinine Ratio 15.1 (6-22); Blood Urea Nitrogen 8 mg/dL (7-17); Calcium 8.3 mg/dL (8.4-10.2); Carbon Dioxide 22 mmol/L (22-32); Chloride 103 mmol/L (98-107); Estimated Glomerular Filt Rate > 60.0 mL/min (>60); Glucose 114 mg/dL (80-110); HEMOLYSIS < 15 (0-50); Potassium 3.9 mmol/L (3.4-5.1); Sodium 130 mmol/L (137-145)
--- NOTE | 2020-09-26 13:45 | PT.IIE ---
Surgical History (Last Updated 07/06/20 @ 10:37 by Nataliia Washington MD) History of sleeve gastrectomy Personal history of gastric banding S/P hernia repair S/P hip replacement Medical History (Last Updated 04/04/20 @ 15:01 by Nataliia Washington MD) Allergies (~1979) Depression Essential hypertension (~2001) Fibromyalgia (~2009) Hyperlipidemia Irritable bowel syndrome (~2017) Osteoarthritis (~1989) Restless legs Ventral hernia Physical Therapy Inpatient Evaluation/Re-Eval M1 PT/OT-IP Prior Functional Status Start: 09/26/20 13:04 Freq: NEEDED Status: Active Protocol: Document 09/26/20 13:58 [facility] (Rec: 09/26/20 14:29 [facility] [id number]) Medical Review Prior Functional Status Medical History Reviewed Yes Communication Independent Mobility and Gait Pt states use of walking stick if going outside. Pt's states she had had 5 falls in the past 4-6 months and has gotten weaker in the past 6-8 months overall. Pt's states pt does minimal walking at home. Activities of Daily Living and IADL's Pt's states assist her with bathing otherwise able to do her ADl needs. Pt and states both pay the bills and assist each other with medications as they bothe states they have trouble with their memory at times. Social History Household Members significant other Living Arrangements RV Number of Floors (Floors) One Floor Number of Stairs To Enter/Railing? 3 steps and able to alternate between left , right , and left hand to hold handrails to help get into the RV. Home Environment High Toilet,Walk in Shower Home Equipment Hand Held Shower Additional Social History Comment Pt has a built in seat which she uses at home and has walking stick that she uses to walk outside. M2 PT-IP Current Condition Start: 09/26/20 13:04 Freq: NEEDED Status: Active Protocol: Document 09/26/20 13:45 [facility] (Rec: 09/26/20 16:12 AW [id number]) Physical Therapy Current Condition Current Condition Evaluation Date 09/26/20 Treatment Diagnosis hyponatremia; recurrent falls; impaired mobility and gait. Onset Date a couple of weeks to months M3 PT-IP Subjective Start: 09/26/20 13:04 Freq: NEEDED Status: Active Protocol: Document 09/26/20 13:45 [facility] (Rec: 09/26/20 16:12 AW [id number]) Subjective Physical Therapy Visit Type Type Initial Evaluation Visit Start Time 13:20 Visit Stop Time 13:45 Total Visit Minutes 25 Number of WHAT JOB TITLES MEAN Visits 0 Physical Therapy Visit Comments Patient Comments Pt is willing to do PT Patient Goals Return home and improve her strength Therapy Pain Assessment Pain When Pain Assessed During Mobility Pain Present Pain Present Denied Pain M4 PT-IP Mobility and Gait Start: 09/26/20 13:04 Freq: NEEDED Status: Active Protocol: Document 09/26/20 13:45 [facility] (Rec: 09/26/20 16:12 AW [id number]) PT-Bed Mobility Assessment Supine to Sit Supine to Sit Standby Assistance Sit to Supine Sit to Supine Standby Assistance Scooting Scooting to Edge of Bed Standby Assistance PT-Transfer Assessment Sit to and From Stand Sit to and from Stand Standby Assistance,Contact Guard Assistance Equipment Transfer Assistive Device Gait Belt,4 Wheeled Walker Orthotic/Prosthetic Devices or Brace: No Transfers Transfer Destination Bed,Chair Transfer Technique Stand Step Pivot Transfer Ability Level of Assist Standby Assistance,1 Person Assistance,Use of Upper Extremities Comments Mobility Comments Pt was lying in the bed as PT arrived. She transitioned to sitting EOB SBA and stood from the bed, needing CGA due to imbalance. She stepped away from the bed, needing CGA/A AND P MECHANIC for balance and participated in static balance assessment. PT instructed pt in safe use of 4WW and pt proceeded to ambulate in the halls with 4WW SBA. Brief trial of ambulation without AD needed CGA. Pt was able to set the brakes appropriately and push the walker against a wall before taking a seated rest break. On return to the room, pt requested return to supine which she completed SBA. Pt was left with call light and all needs in reach Gait Assessment Gait Gait Assistance Required: Standby Assistance,Contact Guard Assist Distance (Feet) 120 Able to Maintain Weight Bearing Status Yes During Gait Assistive Devices Assistive Device None,Gait Belt,4 Wheeled Walker Orthotic/Prosthetic Devices or Brace: No Gait Deviations General Gait Pattern Antalgic,Decreased Stride Length,Decreased Feet Clearance,Flexed Trunk Factors Limiting Gait Function Factors Limiting Gait Function Decreased Activity Tolerance, Decreased Strength,Poor Balance,Poor Safety Awareness Comments Gait Comments See mobility comments for details. Gait independence was improved with use of 4WW. Stair Climbing Assessment Evaluation Level of Assist On Stairs Contact Guard Assistance Devices Stair Climbing Assistive Devices Left Railing,Right Railing Technique/Endurance Stair Climbing Direction Ascend and Descend Stair Climbing Technique Step to Step Number of Steps Climbed 3 Query Text: Stair Climbing Set # Repetitions (reps) 1 PT-Balance Assessment Sitting Balance and Reactions Static Sitting Balance Ability Good Dynamic Sitting Balance Ability Good Standing Balance and Reactions Static Standing Balance Ability Fair Dynamic Standing Balance Ability Fair Device Used 4WW Balance Tests Romberg <5 sec in NBOS EO; unable with EC Tandem Standing unable to assume position without assist M5 PT-IP Objective Assessments Start: 09/26/20 13:04 Freq: NEEDED Status: Active Protocol: Document 09/26/20 13:45 [facility] (Rec: 09/26/20 16:12 AW [id number]) Orientation Orientation/Cognition Level of Alertness Alert Orientation Name,Month,Place,Situation Language Function Ability No Deficits Noted Safety Awareness Understands Safety Issues Memory Description Short Term Impaired Gross Range of Motion Lower Extremity ROM Assessment Within Functional Limits Strength Lower Extremity Strength Assessment Bilaterally Impaired Hip 4-/5 Knee 4/5 Sensation Assessment Sensation Gross Sensation WNL Muscle Tone Muscle Tone WNL Yes M6 PT-IP Treatment Start: 09/26/20 13:04 Freq: NEEDED Status: Active Protocol: Document 09/26/20 13:45 [facility] (Rec: 09/26/20 16:12 AW [id number]) Physical Therapy Treatment Education Education Provided Safety M7 PT-IP Assessment and Plan Start: 09/26/20 13:04 Freq: NEEDED Status: Active Protocol: Document 09/26/20 13:45 [facility] (Rec: 09/26/20 16:12 AW [id number]) PT Summary Assessment and Plan Potential Rehabilitation Potential Fair Status of Condition at Evaluation Evolving Summary Impairments Strength,Balance,Cognition, Transfers,Gait,Activity Tolerance Assessment Summary Nadia is a 75 yo woman with admitting diagnosis of hyponatremia. She reports multiple falls and worsening weakness over the last several months. She lives with her significant other and is typically needing A AND P MECHANIC to walk outside of their RV. On evaluation, pt mentioned interest in a 4WW. Trial of gait without AD required A AND P MECHANIC/ CGA due to poor dynamic balance. Trial of gait with 4WW required only SBA. PT recommends use of 4WW outside of the home. Pt states she is able to safely cruise furniture inside. Will continue to follow for acute PT and recommending outpatient PT to improve strength, gait, and balance. Goals Bed Mobility Goal Independent Transfer Goal Independent,Four Wheeled Walker Gait Goal Independent,Four Wheel Walker Gait Distance 150 Other Goals - up/down 3 steps with alternating hand placement on left rail, right rail CGA. Days to Meet Goals 4 Frequency of Treatment Frequency Of Treatment Once a Day Treatment Plan Physical Therapy Treatment Plan Bed Mobility Training,Transfer Training,Gait Training, Therapeutic Exercise,Balance Retraining,Discharge Planning, Neuromuscular Re-ed, Coordination Retraining Other Recommendations and Next Treatment continue gait training with Focus 4WW Discharge Recommendations PT Discharge Recommendations Home with Assistance,Home with 24/7 Assist Available, Outpatient PT Transportation Needs at Discharge Private Vehicle
--- NOTE | 2020-09-26 15:23 | CM.DANOTE ---
Addendum entered by Tierra Abarca LPN 09/26/20 15:32: Spoke with therapy team. Pt currently uses a walking stick when outside. She plans now to obtain a 4ww when she goes home. PT Alina says the RV is too small for a walker and pt can manage ok inside. Original Note: Discharge Planning/Care Management DCP: assessment: case received, discussed in Team Rounds, EMR reviewed, met now with pt. Introduced self and role. Pt is a 75 year old female who admitted yesterday evening to care of PCP: Dr. Sarah Washington Payer: [employer] Medicare Admission status: INPT: confirmed by UR ELISHA Moran. Pt confirms she lives with partner Rafy, he did return home once the update came in from the physician that she would be staying overnight in hospital again. She says she is hopeful she will be medically ready for d/c tomorrow and says that Rafy will be back in the morning. Will follow prn. P: home when stable with PCP followup CM Discharge Assessment Start: 09/26/20 15:21 Freq: Status: Active Protocol: Document 09/26/20 15:21 ITV (Rec: 09/26/20 15:23 ITV [id number]) Discharge Planning Assessment Advance Directives? No History Provided By Patient,Significant Other, Medical Record Prior Living Arrangements RV Comment address listed is for a [employer] on [address] Household Members significant other Comment life partner Rafy Craft. Independent with ADL's Yes Is patient alert and oriented? Yes Discharge Plan Home
[2020-09-26 15:41] VITALS: BP 170/68; PULSE 63; RESP 20; TEMP 36.8; O2SAT 98
--- NOTE | 2020-09-26 15:41 | DIET.PN ---
Dietary Progress Note Assessment: 75y F admitted for hyponatremia referred to nutrition for reported weight loss. Pt reports worsening depression x2mo with associated severe decrease in appetite and N/V x4w vomiting frequency 1-2x/d. Pt states she does lose her appetite when depressed. Pt has hx of gastric sleeve surgery 3y ago with highest weight 127kg and has been able to maintain her weight loss steady at 95kg. Per chart review pt was 93.4kg on 08/27/20 and now measures 84.5kg one month later (-9.6% in 1mo, severe). Pt reports weakness, poor balance, and has had 5 recent falls, pt presents c bruised right eyelid from fall. Pt moved to [facility] to be with her partner Rafy right before the pandemic hit, they live in . Pts children are in [place] and [place]. She has some family tension and strife contributing to her low appetite, pt reports feeling hopeful now with opportunity to ambulate outside with the 4WW from PT and they will be leasing an space to avoid having to move around as frequently. Pt enjoys oil painting and wants to attend [employer] activities now that they are opening back up again. HT: 160cm WT: 84.5kg UBW: 95kg BMI: 33.0 Labs:admit Na 125 L Nutrition Diagnosis: Severe Acute Protein Calorie Malnutrition r/t psychological causes aeb 9.6% unintentional weight loss in 1 mo, severe, pt reports severely reduced desire to eat secondary to depression, pt has had 5 recent falls and weakness, pt emotions causing N/V c vomiting once daily resulting in admit Na 125. Interventions: 1. Discussed importance of protein intake to support LBM and strength mary after gastric sleeve surgery. Pt had been doing protein shakes in past but not for last few months. Pt willing to restart daily protein drinks. 2. Recc daily smoothie while hospitalized containing PRO powder, almond milk, banana, and peanut butter per pts preference. Consider ONS if POs <75%. Diet Order: General EER: 1690kcal (20kcal/kg per obese PCM), 109g PRO (1.3g/kg per PCM) Monitoring/Evaluations: POs ONS tolerance
[2020-09-26] MEDS: ONDANSETRON 4 MG/2 ML INJ IV (17:24)
--- NOTE | 2020-09-26 17:26 | PC.NURSE ---
Addendum entered by Raquel Tai R.N. 09/26/20 18:26: Patient reports nausea has resolved with medication. Original Note: Shift note: Patient had sudden onset of nausea with emesis. Reports that shake dietary sent her made her sick. Medicated per MAR for nausea and encouraged patient to not drink shake.
[2020-09-26] MEDS: ROPINIROLE 1 MG TABLET 2 MG PO (20:16)
[2020-09-26] MEDS: MELATONIN 3 MG TABLET 9 MG PO (20:16)
[2020-09-26] MEDS: PRAVASTATIN 20 MG TABLET 40 MG PO (20:17)
[2020-09-27 01:10] VITALS: BP 137/69; PULSE 73; RESP 16; TEMP 36.3; O2SAT 96
[2020-09-27] MEDS: SODIUM CHLORIDE 0.9% 1,000 ML 125 ML IV (05:27)
[2020-09-27 06:46] LABS: BUN Creatinine Ratio 11.3 (6-22); Blood Urea Nitrogen 6 mg/dL (7-17); Calcium 8.1 mg/dL (8.4-10.2); Carbon Dioxide 25 mmol/L (22-32); Chloride 104 mmol/L (98-107); Estimated Glomerular Filt Rate > 60.0 mL/min (>60); Glucose 92 mg/dL (80-110); HEMOLYSIS < 15 (0-50); Potassium 3.8 mmol/L (3.4-5.1); Sodium 132 mmol/L (137-145)
--- NOTE | 2020-09-27 08:27 | PM.DS.1 ---
History of Present Illness History of Present Illness Chief complaint: hyponatremia Narrative: Pt is a 75 year old woman with hypertension, depression, fibromyalgia, and IBS who presents after being called in from home due to significant hyponatremia found on blood work today. The patient reports that her appetite has been significantly decreased due to severe nausea with intermittent vomiting for the past approximately 4 weeks. She has been vomiting around 1 to 2 times a day. Today she states that she vomits at most a half cup to a cup of fluid a day. She is eating very little. Her partner reports that she has likely been consuming only around 1-1.5 pints of water a day. She denies any abdominal pain. She denies any diarrhea, constipation, blood in her stool, melena, or hematochezia. The patient has been feeling generally weak and has been having more balance issues as a result. This has been ongoing over this same time period. Patient's mood has also been down recently, feeling more depressed and anxious than usual. She is currently working on this on an outpatient basis. The patient denies any recent chest pain, shortness of breath, palpitations. She denies any recent lower extremity edema. Her hydrochlorothiazide was recently increased from 12.5-25 mg. She previously had been on 25 mg for a relatively long period of time. Discharge Providers Provider Date of admission: 09/25/20 16:50 Discharge Date: 09/27/20 Primary care physician: Nataliia Washington MD Consults: 09/25/20 17:34 Consult to Dietitian, Adult Routine Comment: Reason For Exam: Reflexed from admission 09/26/20 10:06 Consult to Occupational Therapy Evaluate & Treat Comment: Physician Instructions: Evaluate and treat Consult to Physical Therapy Evaluate & Treat Comment: Physician Instructions: Evaluate and Treat Discharge provider: Nataliia Washington MD Summary Hospital Course Discharge Diagnosis: Hyponatremia Nausea Depression and Anxiety HTN Hyperlipidemia Restless leg syndrome Hospital Course: The pt was admitted with significant hyponatremia, thought to be due to persistent nausea/vomiting and decreased PO intake in addition to HCTZ use. She received a total of 3x 1L boluses of NS, in addition to mIVF with NS. Her sodium gradually improved to 132 prior to discharge. The pts balance issues improved significantly and nausea improved as well during her hospitalization. Abdominal CT did not reveal any cause for her nausea. If her symptoms persist as an outpatient, we will refer to GI. The pt will f/u in 1 week with repeat BMP. She will continue to hold her HCTZ, and check her BPs at home regularly. Urine osm are still pending. Status at Discharge Cognitive/behavioral status at discharge: oriented Functional status at discharge: uses cane/walker Overall status at discharge: patient is back to baseline Exam Vital Signs (past 8 hours): - 09/27/20 01:10 Temperature 97.3 F L Pulse Rate 73 Respiratory Rate 16 Blood Pressure 137/69 Pulse Oximetry 96 Oxygen Delivery Method Room Air Oxygen Flow Rate 0 Const General: cooperative and healthy appearing Resp Effort & Inspection: normal respiratory effort Auscultation: clear to auscultation bilaterally, no crackles and no wheezes Cardio Rate: regular rate Rhythm: regular rhythm Heart Sounds: S1 normal, S2 normal and no murmurs Extrem General: no pedal edema Objective Labs Result Diagrams: 09/27/20 06:08 09/27/20 06:08 Labs: Laboratory Results - last 24 hr 09/26/20 09/27/20 12:30 06:08 Sodium 130 L 132 L Potassium 3.9 3.8 Chloride 103 104 Carbon Dioxide 22 25 BUN 8 6 L Creatinine 0.53 0.53 Estimated GFR > 60.0 > 60.0 BUN/Creatinine Ratio 15.1 11.3 Glucose 114 H 92 Calcium 8.3 L 8.1 L PFSH Medical History (Updated 04/04/20 @ 15:05 by Nataliia Washington MD) Allergies (~1979) Depression Essential hypertension (~2001) Fibromyalgia (~2009) Hyperlipidemia Irritable bowel syndrome (~2017) Osteoarthritis (~1989) Restless legs Ventral hernia Surgical History (Updated 07/06/20 @ 10:37 by Nataliia Washington MD) History of sleeve gastrectomy Personal history of gastric banding S/P hernia repair S/P hip replacement Social History marital status: unknown household members: significant other Smoking Status: Former smoker alcohol intake: current substance use type: does not use Discharge Plan Discharge Plan Patient Disposition: Home Discharge orders & Medications Prescriptions: Continued ondansetron 4 mg tablet,disintegrating 4 mg PO Q8H PRN (Reason: nausea and vomiting) Qty: 30 RF: 2 hydroxyzine HCl 25 mg tablet 25 mg PO TID PRN (Reason: anxiety) Qty: 30 RF: 0 oxycodone 5 mg tablet 5 mg PO Q6H PRN (Reason: post operative pain) Qty: 20 RF: 0 pravastatin 40 mg tablet 40 mg PO BEDTIME Qty: 90 RF: 3 losartan 100 mg tablet 100 mg PO DAILY Qty: 90 RF: 3 ropinirole 2 mg tablet 2 mg PO DAILY Qty: 90 RF: 3 escitalopram oxalate 20 mg tablet 20 mg PO DAILY Qty: 30 RF: 2 docusate sodium 100 mg capsule 100 mg PO BEDTIME RF: 0 Discontinued hydrochlorothiazide 25 mg tablet 12.5 mg PO DAILY Qty: 30 RF: 3 Hold Instructions: Home Medication placed on hold at Doctor's office Follow up/Referrals: Nataliia Washington MD [Primary Care Provider] - 10/04/20 9:00 am (APPT:10/04 @ 9:00 w/dr dr washington please arrive 15 minutes prior to scheduled appointment time Please have labs drawn on 10/03 ) Diet/Activity/Treatments Diet: Regular Visit Report/Discharge Packet Instructions: DI for Hyponatremia Visit Report Forms: Patient Portal/API, Stroke Signs & Symptoms Discharge Data Primary Care Provider: Nataliia Washington Discharges patient from system. Discharge Date/Time: 09/27/20 09:50 Quality VTE Deep Vein Thrombosis/Pulmonary Embolism Present on Admission: No
[2020-09-27 08:29] VITALS: BP 145/75; PULSE 69; RESP 16; TEMP 36.3; O2SAT 95
[2020-09-27 08:55] VITALS: BP 145/75; PULSE 69
[2020-09-27] MEDS: ESCITALOPRAM 10 MG TABLET 20 MG PO (08:55)
[2020-09-27] MEDS: LOSARTAN 50 MG TABLET 100 MG PO (08:55)
[2020-09-27] MEDS: SODIUM CHLORIDE 0.9% FLUSH 10 ML IV (08:56)
--- NOTE | 2020-09-27 10:14 | PC.NURSE ---
Pt A&Ox3, pleasant. LS CTA, abd soft non-tender. Ambulating with steady gait FWW, denies dizziness, SANDOVAL, n/v. 0 edema, denies SOB. VSS, afebrile. Na+ increased today. MD at bedside clearing patient for discharge home. arrives at bedside to take pt. home. Pt verbalizes follow up appointment, medications, and instructions. Escorted by RN to private vehicle with via w/c with all of her belongings.
[2020-09-27 15:17] LABS: Osmolality Urine 444 mOsmol/kg (.)
== END 2020-09-27 09:50 | disposition home or self-care (01) | DRG 640 ==
PROVIDERS: Admitting Provider Family Medicine; PCP Family Medicine; Referring Provider Family Medicine; Visit Provider Family Medicine
DX: E87.1 Hypo-osmolality and hyponatremia (principal); E43 Unspecified severe protein-calorie malnutrition; R11.2 Nausea with vomiting, unspecified; I10 Essential (primary) hypertension; F32.9 Major depressive disorder, single episode, unspecified; M79.7 Fibromyalgia; F41.9 Anxiety disorder, unspecified; G25.81 Restless legs syndrome; Z87.891 Personal history of nicotine dependence; Z20.822 Contact with and (suspected) exposure to COVID-19; Z68.36 Body mass index [BMI] 36.0-36.9, adult
CPT/HCPCS: 36415; 74178; 80048; 80053; 81001; 83036; 83690; 83935; 84300; 85025; 87086; 87635; 93005; 93010; 97116; 97162; 97165; 97530; 97535; 99223; 99232; 99238; C9803; G0379; J2405; Q9967

== ENCOUNTER → 2020-10-04 14:03 | Outpatient (CLI) | payer MEDICARE, SELFPAY ==
[2020-09-25 17:17] VITALS: BMI 33.0
[2020-10-04 15:20] LABS: HEMOLYSIS < 15 (0-50); Potassium 4.2 mmol/L (3.4-5.1)
[2020-10-04 15:21] LABS: BUN Creatinine Ratio 27.7 (6-22); Blood Urea Nitrogen 18 mg/dL (7-17); Calcium 9.9 mg/dL (8.4-10.2); Carbon Dioxide 25 mmol/L (22-32); Chloride 94 mmol/L (98-107); Estimated Glomerular Filt Rate > 60.0 mL/min (>60); Glucose 103 mg/dL (80-110); Sodium 128 mmol/L (137-145)
== END ==
PROVIDERS: PCP Family Medicine; Referring Provider Family Medicine; Visit Provider Family Medicine
DX: E87.1 Hypo-osmolality and hyponatremia (principal)
CPT/HCPCS: 36415; 80048

== ENCOUNTER → 2020-10-10 14:11 | Outpatient (CLI) | payer MEDICARE, SELFPAY ==
[2020-09-25 17:17] VITALS: BMI 33.0
[2020-10-10 18:31] LABS: BUN Creatinine Ratio 29.5 (6-22); Blood Urea Nitrogen 18 mg/dL (7-17); Carbon Dioxide 25 mmol/L (22-32); Chloride 103 mmol/L (98-107); Estimated Glomerular Filt Rate > 60.0 mL/min (>60); Glucose 90 mg/dL (80-110); Potassium 4.6 mmol/L (3.4-5.1); Sodium 134 mmol/L (137-145)
[2020-10-10 18:32] LABS: Calcium 9.3 mg/dL (8.4-10.2); HEMOLYSIS < 15 (0-50)
[2020-10-11 02:59] LABS: Sodium Urine Random 55 mmol/L (30-90)
[2020-10-11 15:08] LABS: Osmolality Urine 842 mOsmol/kg (.)
== END ==
PROVIDERS: PCP Family Medicine; Referring Provider Family Medicine; Visit Provider Family Medicine
DX: E87.1 Hypo-osmolality and hyponatremia (principal)
CPT/HCPCS: 36415; 80048; 83935; 84300

== ENCOUNTER → 2020-11-04 15:31 | Outpatient (CLI) | payer MEDICARE, SELFPAY ==
--- NOTE | 2020-11-04 15:33 | DI.RAD.S_ITS ---
PROCEDURE: XR LUMBAR SPINE 2-3V INDICATIONS: acute back pain after fall TECHNIQUE: 2 views of the lumbar spine were acquired. COMPARISON: None. FINDINGS: Bones: 5 [id number] vertebrae are present. There is normal bony alignment. No vertebral body compression fractures. No suspicious bony lesions. Multilevel disc space narrowing and endplate osteophyte formation. Facet hypertrophy throughout the mid and lower lumbar spine. Soft tissues: Overlying bowel gas pattern is normal. No suspicious soft tissue calcifications. IMPRESSION: 1. Multilevel degenerative disc and facet disease. 2. No acute fracture. No osseous lesion. If symptoms and/or clinical suspicion for pathology persist, further assessment with repeat, or advanced imaging (e.g., CT, MRI, or bone scan) may be helpful for further assessment. Dictated by: Kayleen Romo M.D. on 11/04/2020 at 16:27 Approved by: Kayleen Romo M.D. on 11/04/2020 at 16:27
--- NOTE | 2020-11-04 15:33 | DI.RAD.S_ITS ---
PROCEDURE: XR THORACIC SPINE 3V INDICATIONS: acute back pain after fall TECHNIQUE: 3 views of the thoracic spine were acquired. COMPARISON: None. FINDINGS: Bones: High-grade compression deformity involving mid thoracic spine vertebral body at T8 level is seen with up to 70% loss of T8 vertebral body height anteriorly and mild kyphosis centered at T7 level. No suspicious bony lesions. 12 pairs of ribs are noted, and appear intact where visualized. Soft tissues: No paravertebral stripe thickening. IMPRESSION: Age indeterminate high-grade anterior wedge compression deformity at T8 level with up to 70% loss of T8 vertebral body height anteriorly. Mild kyphosis centered at T7 level. No other compression fracture or spondylolisthesis. Dictated by: Mart Villanueva M.D. on 11/04/2020 at 16:47 Approved by: Mart Villanueva M.D. on 11/04/2020 at 16:48
--- NOTE | 2020-11-04 15:33 | DI.RAD.S_ITS ---
PROCEDURE: XR CERVICAL SPINE 2V OR 3V INDICATIONS: acute back pain after fall TECHNIQUE: 3 view(s) of the cervical spine were acquired. COMPARISON: None. FINDINGS: Bones: No acute fracture seen. C7 is not well visualized. Multilevel degenerative endplate sclerosis and spurring. Diffuse facet arthropathy. grade 1 anterolisthesis of C4 on C5. Severe narrowing of the C5-C6 disc space. Mild to moderate narrowing of the remaining cervical disc spaces. Soft tissues: No prevertebral soft tissue swelling. IMPRESSION: Moderate spondylosis and facet arthropathy. No acute fracture identified. Dictated by: Patel Putnam M.D. on 11/04/2020 at 16:23 Approved by: Patel Putnam M.D. on 11/04/2020 at 16:25
== END ==
PROVIDERS: PCP Family Medicine; Referring Provider Family Medicine; Visit Provider Family Medicine
DX: M54.9 Dorsalgia, unspecified (principal); M47.812 Spondylosis without myelopathy or radiculopathy, cervical region; M47.816 Spondylosis without myelopathy or radiculopathy, lumbar region; M40.204 Unspecified kyphosis, thoracic region
CPT/HCPCS: 72040; 72072; 72100

== ENCOUNTER → 2021-01-03 11:26 | Outpatient (CLI) | payer MEDICARE, SELFPAY ==
[2021-01-02 12:19] VITALS: BMI 33.0
[2021-01-03 11:50] LABS: Appearance Urine UA SL CLOUDY; Bilirubin Urine UA NEGATIVE (NEGATIVE); Color Urine UA YELLOW; Glucose Urine UA NEGATIVE (Negative); Ketones Urine UA NEGATIVE (NEGATIVE); Leukocyte Esterase Urine UA 1+ (NEGATIVE); Nitrite Urine UA POSITIVE (Negative); Occult Blood Urine UA 2+ (Negative); Protein Urine UA 1+ (Negative)
[2021-01-03 11:59] LABS: Amorphous Sediment Urine 2+; Bacteria Urine Many (>30); Culture Indicated Urine Cult Not Indicated; RBC Urine 5-10/HPF (0-5/HPF); Squamous Epithelial Cell Urine 10-30 /HPF (0-5/HPF); WBC Urine 5-10/HPF (0-5/HPF)
== END ==
PROVIDERS: PCP Family Medicine; Referring Provider Family Medicine; Visit Provider Family Medicine
DX: N39.0 Urinary tract infection, site not specified (principal); R30.0 Dysuria; R35.0 Frequency of micturition; R39.15 Urgency of urination
CPT/HCPCS: 81001; 87077; 87086; 87186

== ENCOUNTER → 2021-07-18 10:21 | Outpatient (CLI) | payer MEDICARE, SELFPAY ==
[2021-01-02 12:19] VITALS: BMI 33.0
== END ==
PROVIDERS: PCP Family Medicine; Visit Provider Family Medicine
DX: R30.0 Dysuria (principal)
CPT/HCPCS: 87086

== ENCOUNTER → 2021-11-21 06:59 | Outpatient (CLI) | payer MEDICARE, SELFPAY ==
[2021-01-02 12:19] VITALS: BMI 33.0
[2021-11-21 08:55] LABS: Creatinine Urine Random 96.9 mg/dL
[2021-11-21 08:58] LABS: Microalbumi Creatinin Ratio Ur 9.2 ug/mg CR (<30); Microalbumin Urine Random 0.9 mg/dL (0-1.6)
[2021-11-21 09:06] LABS: Alanine Aminotransferase 13 IU/L (<35); Albumin 3.5 g/dL (3.5-5.0); Albumin Globulin Ratio 1.3 (1.0-2.8); Alkaline Phosphatase 94 U/L (38-126); Aspartate Aminotransferase 26 IU/L (14-36); BUN Creatinine Ratio 18.8 (6-22); Bilirubin Total 0.8 mg/dL (0.2-1.3); Blood Urea Nitrogen 13 mg/dL (7-17); Calcium 8.6 mg/dL (8.4-10.2); Carbon Dioxide 29 mmol/L (22-32); Chloride 104 mmol/L (98-107); Cholesterol 163 mg/dL (140-199); Estimated Glomerular Filt Rate > 60 mL/min (>60); Globulin 2.6 g/dL (1.7-4.1); Glucose 90 mg/dL (80-110); HDL Cholesterol 64 mg/dL (40-60); HEMOLYSIS < 15 (0-50); LDL Cholesterol Calculated 72 mg/dL (<100); Potassium 3.7 mmol/L (3.4-5.1); Sodium 139 mmol/L (137-145); Total Protein 6.1 g/dL (6.3-8.2); Triglycerides 137 mg/dL (35-150)
== END ==
PROVIDERS: PCP Family Medicine; Referring Provider Family Medicine; Visit Provider Family Medicine
DX: I10 Essential (primary) hypertension (principal)
CPT/HCPCS: 36415; 80053; 80061; 82043; 82570